=== PATIENT | male | born 1950 | race Caucasian/White ===

== ENCOUNTER → 2018-09-11 | Outpatient (CLI) | payer MEDICARE ==
--- NOTE | 2018-09-11 15:16 | RAD ---
Chest, 2 views, 09/11/2018: HISTORY: Cough The heart size and pulmonary vascularity are normal. A tiny dense nodule in the right base is compatible with a granuloma. No pulmonary consolidation is seen. There is no evidence of pleural fluid. There is an old healed fracture of the right fourth rib posterolaterally. Minimal spurring is present in the spine. IMPRESSION: No acute cardiopulmonary abnormality is detected. Electronically signed by: Cameron Moura MD (09/11/2018 3:13 PM) [facility]
== END | disposition home or self-care (01) ==
LOC: EDBD 10:28 → RAD 10:28
PROVIDERS: ATTEND Internal Medicine
DX: M46.04 Spinal enthesopathy, thoracic region (principal); R91.1 Solitary pulmonary nodule
CPT/HCPCS: 71046